=== PATIENT | female | born 1985 | race Caucasian/White ===

== ENCOUNTER 2018-04-13 10:56 | Emergency (ER) | payer BC ==
[2018-04-13 11:27] LABS: Bilirubin Negative (Negative); Blood, Urine Negative (Negative); Clarity Clear (Clear); Glucose, Urine (Dipstick) Negative (Negative); Leukocyte Negative (Negative); Nitrite Negative (Negative); Protein, Urine (Dipstick) Negative (Neg-Trace); Specific Gravity, Urine 1.015 (1.005-1.030); Urobilinogen 0.2 mg/dL (0.2-1.0)
[2018-04-13 11:44] LABS: #Basophils 0.1 thou/uL (0.0-0.2); #Eosinphils 0.1 thou/uL (0.0-0.7); #Lymphocytes 1.3 thou/uL (1.20-3.40); #Monocytes 0.7 thou/uL (0.11-0.59); %Basophils 0.6 % (0.0-1.0); %Eosinophils 0.9 % (0.0-10.0); %Lymphocytes 13.1 % (21.0-51.0); %Monocytes 7.2 % (0.0-10.0); %Neutrophils 78.2 % (42.0-75.0); Hemoglobin 10.8 g/dL (12.0-16.0); Mean Corpuscular HGB CONC 34.8 g/dL (32.0-36.0); Mean Corpuscular Hemoglobin 30.5 pg (27.0-31.0); Mean Corpuscular Volume 87.6 fL (78.0-98.0); Platelet Count 181 thou/uL (130-400); RBC Distribution Width 11.1 % (11.5-14.5); Red Blood Cell (RBC) Count 3.55 mill/uL (4.20-5.40); White Blood Cell (WBC) Count 10.2 thou/uL (4.8-10.8)
[2018-04-13 11:55] LABS: ALT (SGPT) 11 U/L (8-55); AST (SGOT) 16 U/L (5-34); Albumin 3.5 g/dL (3.5-5.0); Alkaline Phosphatase 45 U/L (40-150); Anion Gap 11 mmol/L (10-20); BUN (Urea Nitrogen) 10 mg/dL (7.0-18.7); Bilirubin, Total 0.2 mg/dL (0.2-1.2); Calc. Creatinine Clearance 0 mL/min (70-130); Calcium 8.9 mg/dL (7.8-10.44); Carbon Dioxide 23 mmol/L (22-29); Chloride 104 mmol/L (98-107); Estimated GFR-MDRD Greater than 90; Glucose 71 mg/dL (70-105); Potassium 3.8 mmol/L (3.5-5.1); Protein, Total 6.5 g/dL (6.0-8.3); Sodium 134 mmol/L (136-145)
--- NOTE | 2018-04-13 13:09 | ULT ---
OB ULTRASOUND: HISTORY: Pelvic and abdomen pain. FINDINGS: Real-time imaging of the pelvis was performed. This shows a single viable intrauterine whi ch is in a transverse presentation. The placenta appears to be forming anteriorly and more fundal in location. The cervical canal length is 4 cm. Amniotic fluid is adequate for this stage of pregnanc y. The heart rate is 147 b.p.m. measurements are as follows: BPD 2.9 cm, 15 weeks 3 days Head circumference 11.3 cm, 15 weeks 3 days Abdominal circumference 9.2 cm, 15 weeks 3 days Femur length 1.7 cm, 16 weeks 0 days IMPRESSION: 1. Single viable intrauterine in a predominantly transverse lie. Overall measurements cor responding to a gestational age of 15 weeks 1 day, estimated date of delivery 10/04/18. 2. Placenta which appears to be forming more in the fundal region. No signs of previa. POS: [facility]
== END 2018-04-13 12:50 | disposition home or self-care (01) ==
LOC: SCSER 10:56
DX: O99.89 Other specified diseases and conditions complicating pregnancy, childbirth and the puerperium (principal); R10.9 Unspecified abdominal pain; Z3A.12 12 weeks gestation of pregnancy
CPT/HCPCS: 76815; 80053; 81003; 85025

== ENCOUNTER 2018-09-15 19:22 | Inpatient (IN) | payer BC ==
[2018-09-15 20:38] VITALS: BMI 23.8
[2018-09-15] MEDS ORDERED: Ondansetron PF 4 MG/2 ML Vial IVP PRN (20:58)
[2018-09-15] MEDS ORDERED: Promethazine HCl 25 MG/ML VIAL IM PRN (20:58)
[2018-09-15] MEDS ORDERED: Lidocaine 1% (PF) 30 ML VIAL SC PRN (20:58)
[2018-09-15] MEDS ORDERED: Butorphanol Tartrate 1 MG/ML VIAL SLOW IVP PRN (21:08)
[2018-09-15] MEDS: Lactated Ringer's 1,000 ML IV SCH (21:17)
[2018-09-15] MEDS ORDERED: Carboprost 250 MCG/ML AMP IM PRN (21:21)
[2018-09-15] MEDS ORDERED: Diphenoxylate HCl/Atropine Tablet PO PRN ×2 (21:21)
[2018-09-15] MEDS ORDERED: Misoprostol 200 MCG TAB PR PRN (21:21)
[2018-09-15] MEDS ORDERED: Methylergonovine 0.2 MG/ML VIAL IM PRN (21:21)
[2018-09-15] MEDS ORDERED: HYDROcodone/Acetaminophen 5/325 mg Tablet PO PRN ×2 (21:21)
[2018-09-15] MEDS ORDERED: Ibuprofen 800 MG TAB PO PRN (21:21)
[2018-09-15] MEDS ORDERED: NS w/ Oxytocin 10 units 500 ML IV SCH (21:30)
[2018-09-15 21:57] LABS: Hemoglobin 11.9 g/dL (12.0-16.0); Mean Corpuscular HGB CONC 34.8 g/dL (32.0-36.0); Mean Corpuscular Hemoglobin 33.5 pg (27.0-31.0); Mean Corpuscular Volume 96.3 fL (78.0-98.0); Mean Platelet Volume 9.4 fL (7.4-10.4); Platelet Count 206 thou/uL (130-400); RBC Distribution Width 12.3 % (11.5-14.5); Red Blood Cell (RBC) Count 3.55 mill/uL (4.20-5.40); White Blood Cell (WBC) Count 13.6 thou/uL (4.8-10.8)
[2018-09-15 22:38] LABS: Syphilis Antibody Nonreactive (Nonreactive); Syphilis Antibody Index 0.03 S/CO (<1.00 Non-Reactive)
[2018-09-15] MEDS: Misoprostol 100 MCG TAB PO SCH (22:41)
[2018-09-15 23:11] LABS: HBSAg Index 0.23 S/CO (0-0.99); Hep B Surf Ag Non-Reactive S/CO (NonReactive)
[2018-09-16] MEDS: Lactated Ringer's 1,000 ML IV SCH ×2 (04:32→14:20)
[2018-09-16] MEDS: NS / Oxytocin 40 units/1000ml 1,000 ML IV PRN ×2 (09:59→11:03)
[2018-09-16 10:19] LABS: Analyzer IN Cardio OR; pH (Cord, venous) 7.35 (7.32-7.43)
[2018-09-16 10:20] LABS: Actual Bicarbonate (HCO3v) 23 mEq/L (22-28); Base Excess -2.5 mEq/L (-2.0 to +3.0)
--- NOTE | 2018-09-16 10:20 | DN ---
DATE OF PROCEDURE: 09/16/2018 TIME OF INTERVENTION: 0954 hours. LOCATION: Labor and delivery in bed #7. In brief, I was called stat to room #7 as I was with another patient in triage bed B assisting with a sterile speculum exam. I was called for eminent delivery. I arrived within 30 seconds of being called to find baby being delivered, being assisted by Jessica, the patient's nurse. Dr. Lazaro Alcaraz) came with me as power transmission engineer. Baby was vigorous at with a nuchal cord x1, which was delivered through. Apgars by report were 8 and 9 after the 5 minutes kristopher. Janina Good arrived at roughly the 5 minutes kristopher at approximately 0959 hours. Pre placenta EBL is about 200. Per Janina Good, she will send the placenta for a possible CMV primary exposure during this . Cord gases were also sent. When I left the room at just prior to 10:00 a.m., Janina Good was at the bedside, and will proceed from placental delivery onward. Final EBL and QBL per Janina Good. Laceration assessment per Janina Good. ASSESSMENT: 1. The patient with precipitous delivery attended by power transmission engineer, the patient's nurse. 2. status post vaginal . 3. No acute complications noted. Job ID: [id number]
[2018-09-16] MEDS: Misoprostol 100 MCG TAB PO SCH ×2 (11:19→14:02)
--- NOTE | 2018-09-16 12:56 | PDOC.LDHP ---
Labor and Delivery H&P Chief complaint: other (Medically indicated IOL for asymetric IUGR, olioghydramnios, and primary CMV exposure) HPI: anthony is a at 37.1 days sent from her consultation with the [facility] for IOL due to IUGR and oligo. Current gestational age (weeks): 31 (1 days) Grav: 2 Para: 1 OB History Details: G1 - 8.9. GDM. G2 current. Current complications: IUGR (aysmetric. IUGR.), other (GDM - diet controlled.) Abnormal US findings: Yes (Doliocephaly, IUGR, Calcifications near kidney, oligo ) Current medications: pre-smith vitamins Previous surgical history: other (cyst/mole removal) Allergies/Adverse Reactions: Allergies Allergy/AdvReac Type Severity Reaction Status Date / Time No Known Allergies Allergy Verified 09/15/18 20:14 Social history: none - Physical Exam Vital signs reviewed and normal: yes General: NAD Lungs: nonlabored breathing Abdomen: gravid FHT: category 1 - Vaginal Exam cm dilated: 3 Effacement: 50% Station: -2 - OB Labs Blood type: B RH: positive Antibody Screen: negative HIV: negative RPR: negative HEPSAg: negative 1 hour GCT: positive GBS: negative Urine drug screen: not done Rubella: immune Additional Labs: CMV IgG and IgMpositive and Low CMV avidity 25 - Assessment L&D Assessment: medically indicated induction - Plan Plan: admit to L&D, cervical ripening (with PO cytotec), anesthesia consult for pain management
[2018-09-16] MEDS ORDERED: Benzocaine/Menthol 20-0.5% 60 ML CAN TOP PRN (14:29)
[2018-09-16] MEDS ORDERED: Measles/Mumps/Rubella 10 MCG/0.5 ML VIAL SC ONE (14:29)
[2018-09-16] MEDS ORDERED: Milk Of Magnesia 30 ML UDCUP PO PRN (14:29)
[2018-09-16] MEDS ORDERED: HYDROcodone/Acetaminophen 5/325 mg Tablet PO PRN ×2 (14:29)
[2018-09-16] MEDS ORDERED: Bisacodyl 10 MG SUPP PR PRN (14:29)
[2018-09-16] MEDS ORDERED: NS / Oxytocin 40 units/1000ml 1,000 ML IV SCH (14:29)
[2018-09-16] MEDS ORDERED: Misoprostol 200 MCG TAB VAG PRN (14:29)
[2018-09-16] MEDS ORDERED: Methylergonovine 0.2 MG/ML VIAL IM PRN (14:29)
[2018-09-16] MEDS ORDERED: Adacel (T-DAP) 0.5 ML SYRINGE IM ONE (14:29)
[2018-09-16] MEDS ORDERED: Ondansetron PF 4 MG/2 ML Vial IVP PRN (14:29)
[2018-09-16] MEDS ORDERED: Varicella virus, LIVE 0.5 ML VIAL SC ONE (14:29)
[2018-09-16] MEDS: Ibuprofen 800 MG TAB PO SCH (15:06)
[2018-09-16] MEDS: Ferrous Sulfate 325 MG TAB PO SCH (18:03)
[2018-09-16] MEDS: Docusate Calcium (SURFAK) 240 MG CAP PO SCH (22:43)
[2018-09-17] MEDS: Ibuprofen 800 MG TAB PO SCH ×5 (02:02→17:15)
[2018-09-17 06:19] LABS: Hemoglobin 10.3 g/dL (12.0-16.0); Mean Corpuscular HGB CONC 33.5 g/dL (32.0-36.0); Mean Corpuscular Volume 98.4 fL (78.0-98.0); Platelet Count 172 thou/uL (130-400); RBC Distribution Width 12.4 % (11.5-14.5); Red Blood Cell (RBC) Count 3.13 mill/uL (4.20-5.40); White Blood Cell (WBC) Count 12.1 thou/uL (4.8-10.8)
--- NOTE | 2018-09-17 07:13 | PDOC.PP ---
Post Progress Note Post Day #: 1 Subjective: doing well, lochia light, no pain, pumping and having milk frozen PO intake tolerated: yes Flatus: yes Ambulation: yes Vital Signs (12 hours) Temp Pulse Resp BP Pulse Ox 09/17/18 05:10 73 18 99/58 L 09/17/18 02:00 97.7 F 74 18 116/66 09/16/18 20:50 97.9 F 80 18 121/57 L 97 Weight Weight 152 lb - Physical Examination General: NAD Respiratory: non-labored breathing Abdominal: no distention Fundus firm & at: below umb Skin: no rash Neurological: no gross focal deficits Psychiatric: A&Ox3, normal affect Result Diagrams: 09/17/18 05:59 Additional Labs: Post Labs Blood Type B POSITIVE 09/15/18 21:47 Hep Bs Antigen Non-Reactive S/CO (NonReactive) 09/15/18 21:47 (1) Cytomegalovirus infection in mother during , antepartum Code(s): O98.519 - OTHER VIRAL DISEASES COMPLICATING , UNSP TRIMESTER; B25.9 - CYTOMEGALOVIRAL DISEASE, UNSPECIFIED Status: Acute (2) 37 weeks gestation of Code(s): Z3A.37 - 37 WEEKS GESTATION OF Status: Acute (3) Gestational diabetes Code(s): O24.419 - GESTATIONAL DIABETES MELLITUS IN , UNSP CONTROL Status: Acute Qualifiers: Gestational diabetes mellitus control: diet-controlled Trimester: unspecified trimester Qualified Code(s): O24.410 - Gestational diabetes mellitus in , diet controlled (4) Vaginal delivery Code(s): O80 - ENCOUNTER FOR FULL-TERM UNCOMPLICATED DELIVERY Status: Acute - Assessment/Plan PPD1, sp IOL w precip delivery @ 37 weeks->asym IUGR and primary CMV suspected in the early third trimester. Pumping and freezing milk at this time.
[2018-09-17] MEDS: Ferrous Sulfate 325 MG TAB PO SCH ×2 (09:51→17:17)
[2018-09-17] MEDS: Prenatal Vitamin 1 TAB PO SCH (09:52)
[2018-09-17] MEDS: Docusate Calcium (SURFAK) 240 MG CAP PO SCH ×2 (09:52→21:51)
[2018-09-18] MEDS: Ibuprofen 800 MG TAB PO SCH ×2 (00:37→09:35)
--- NOTE | 2018-09-18 06:37 | PDOC.OPDEL ---
OB Operative/Delivery Note Delivery Dr/Surgeon: Loraine Good Pre-Delivery Diagnosis: medically indicated induction Procedure/Post Delivery Dx: spontaneous vaginal delivery (precipitously pascual RN. I arrived immediately after delivery and continued to proceed with placenta delivery.) Weeks gestation: 37 Anesthesia: none - Findings A Sex: female Weight: 6 lb 6 oz - Additional Findings/Plan Placenta delivered: spontaneous Repaired Obstetrical Laceration: none Estimated blood loss: 300mL Post delivery plan: routine recovery
--- NOTE | 2018-09-18 06:55 | PDOC.PP ---
Post Progress Note Post Day #: 2 PO intake tolerated: yes Flatus: yes Ambulation: yes Vital Signs (12 hours) Temp Pulse Resp BP Pulse Ox 09/17/18 23:30 98.1 F 80 18 101/57 L 09/17/18 20:15 98.1 F 92 18 115/68 100 Weight Weight 152 lb - Physical Examination General: NAD Cardiovascular: no m/r/g, RRR Respiratory: clear to auscultation bilaterally, non-labored breathing Abdominal: + bowel sounds, lochia Extremities: negative homans (B) Neurological: no gross focal deficits Psychiatric: A&Ox3, normal affect Result Diagrams: 09/17/18 05:59 Additional Labs: Post Labs Blood Type B POSITIVE 09/15/18 21:47 Hep Bs Antigen Non-Reactive S/CO (NonReactive) 09/15/18 21:47 (1) 37 weeks gestation of Code(s): Z3A.37 - 37 WEEKS GESTATION OF Status: Acute - Assessment/Plan doing well dc home with routine fu
[2018-09-18] MEDS: Ferrous Sulfate 325 MG TAB PO SCH (09:32)
[2018-09-18] MEDS: Prenatal Vitamin 1 TAB PO SCH (09:33)
[2018-09-18] MEDS: Docusate Calcium (SURFAK) 240 MG CAP PO SCH (09:33)
--- NOTE | 2018-09-18 12:28 | PDOC.PP ---
Post Progress Note Post Day #: 2 Subjective: doing well. feeling great. She has decided to breastfeed, which is going well PO intake tolerated: yes Flatus: yes Ambulation: yes Vital Signs (12 hours) Temp Pulse Resp BP Pulse Ox 09/18/18 08:35 97.7 F 84 20 119/69 97 Weight Weight 152 lb - Physical Examination General: NAD Cardiovascular: RRR Respiratory: non-labored breathing Extremities: negative homans (B) Neurological: no gross focal deficits Psychiatric: A&Ox3, normal affect Result Diagrams: 09/17/18 05:59 Additional Labs: Post Labs Blood Type B POSITIVE 09/15/18 21:47 Hep Bs Antigen Non-Reactive S/CO (NonReactive) 09/15/18 21:47 - Assessment/Plan A: SP precipitous . IOL for IUGR and olio sp primary CMV exposure
[2018-09-18 12:32] VITALS: BP 111/67; TEMP 97.5
== END 2018-09-18 13:45 | disposition home or self-care (01) | DRG 806 ==
LOC: L&D 19:22 → 3SW 09-16 12:50
PROVIDERS: ADMIT Obstetrics & Gynecology; ATTEND Obstetrics & Gynecology
PROC: 10E0XZZ Delivery of Products of Conception, External Approach (ICD-10-PCS; principal; 2018-09-16)
PROC: 10907ZC Drainage of Amniotic Fluid, Therapeutic from Products of Conception, Via Natural or Artificial Opening (ICD-10-PCS; 2018-09-16)
PROC: 3E033VJ Introduction of Other Hormone into Peripheral Vein, Percutaneous Approach (ICD-10-PCS; 2018-09-16)
DX: O24.420 Gestational diabetes mellitus in childbirth, diet controlled (principal); O41.03X0 Oligohydramnios, third trimester, not applicable or unspecified; Z37.0 Single live birth; B25.9 Cytomegaloviral disease, unspecified; O35.3XX0 Maternal care for (suspected) damage to fetus from viral disease in mother, not applicable or unspecified; O62.3 Precipitate labor; Z3A.37 37 weeks gestation of pregnancy; O69.81X0 Labor and delivery complicated by cord around neck, without compression, not applicable or unspecified; O36.5930 Maternal care for other known or suspected poor fetal growth, third trimester, not applicable or unspecified
CPT/HCPCS: 36415; 82805; 85027; 86780; 86850; 86900; 86901; 87340; 88307; 90716; J2001